=== PATIENT | male | born 1955 | race Caucasian/White ===

== ENCOUNTER 2021-03-16 17:22 | Emergency (ER) | payer MEDICARE ==
[2021-03-16 17:50] LABS: BASOPHIL 0.3 % (0-2); EOSINOPHIL 0.8 % (0-7); HCT 37.9 % (42.0-52.0); HGB 13.3 g/dl (13.2-18.0); LYMPHOCYTE 22.9 % (15-48); MCH 30.2 pg (25.0-31.0); MCHC 35.1 g/dL (32.0-36.0); MCV 85.9 fL (78.0-100.0); MONOCYTE 7.2 % (0-12); MPV 9.6 fL (6.0-9.5); NEUTROPHIL 68.5 % (41-80); NRBC 0; PLT 192 K/uL (150-400); RBC 4.41 M/uL (4.70-6.00); RDW 12.4 % (11.5-14.0)
[2021-03-16 17:56] LABS: INR 1.14 (0.9-1.2); PROTHROMBIN TIME 13.9 SECONDS (11.4-13.6); PTT 25.4 SECONDS (22.2-34.7)
[2021-03-16 17:57] LABS: D-DIMER 0.82 ug/mLFEU (0.00-0.41)
[2021-03-16 18:03] LABS: ALBUMIN 3.8 g/dL (3.4-5.0); BILIRUBIN - TOTAL 0.5 mg/dL (0.2-1.0); BUN/CREAT RATIO (CALC) 24.6 RATIO; CREATININE 0.69 mg/dL (0.67-1.17); GLOBULIN (CALCULATION) 3.2 g/dL; POTASSIUM 3.2 mmol/L (3.5-5.1)
[2021-03-16 18:11] LABS: CKMB 1.1 ng/mL (0.0-3.6)
[2021-03-16 22:02] LABS: BILIRUBIN NEGATIVE (NEGATIVE); BLOOD NEGATIVE Ery/uL (NEGATIVE); CLARITY CLEAR (CLEAR); COLOR YELLOW (YELLOW); GLUCOSE (U) NORMAL (NORMAL); LEUKOCYTES NEGATIVE Leu/uL (NEGATIVE); NITRITE NEGATIVE (NEGATIVE); PROTEIN TRACE (LOW) mg/dL (NEGATIVE); SPECIFIC GRAVITY >=1.030 (1.001-1.030); UROBILINOGEN 0.2 mg/dL (0.2-1.0); pH 5.5 (5.0-9.0)
== END 2021-03-17 00:11 | disposition other institution (70) ==
LOC: FER 17:22
PROVIDERS: Emergency Medicine
DX: I21.4 Non-ST elevation (NSTEMI) myocardial infarction (principal); Z20.822 Contact with and (suspected) exposure to COVID-19; Z79.82 Long term (current) use of aspirin; Z79.899 Other long term (current) drug therapy
CPT/HCPCS: 36415; 71045; 80053; 81003; 82553; 84484; 85025; 85379; 85610; 85730; 93005; J1644; J2270; J2405; U0002

== ENCOUNTER 2021-05-07 18:18 | Emergency (ER) | payer MEDICARE ==
[2021-05-07 21:52] LABS: BASOPHIL 0.3 % (0-2); EOSINOPHIL 0.8 % (0-7); HCT 40.9 % (42.0-52.0); HGB 14.7 g/dl (13.2-18.0); LYMPHOCYTE 27.8 % (15-48); MCH 30.1 pg (25.0-31.0); MCHC 35.9 g/dL (32.0-36.0); MCV 83.6 fL (78.0-100.0); MONOCYTE 7.4 % (0-12); MPV 9.9 fL (6.0-9.5); NEUTROPHIL 63.4 % (41-80); NRBC 0; PLT 248 K/uL (150-400); RBC 4.89 M/uL (4.70-6.00); RDW 12.5 % (11.5-14.0); WBC 9.5 K/uL (4.0-10.5)
[2021-05-07 22:17] LABS: ALBUMIN 3.8 g/dL (3.4-5.0); BILIRUBIN - TOTAL 0.7 mg/dL (0.2-1.0); BUN/CREAT RATIO (CALC) 26.7 RATIO; CREATININE 1.05 mg/dL (0.67-1.17); GLOBULIN (CALCULATION) 3.8 g/dL; POTASSIUM 2.9 mmol/L (3.5-5.1); TOTAL PROTEIN 7.6 g/dL (6.4-8.2)
[2021-05-07 22:21] LABS: BILIRUBIN NEGATIVE (NEGATIVE); BLOOD NEGATIVE Ery/uL (NEGATIVE); CLARITY CLEAR (CLEAR); COLOR YELLOW (YELLOW); GLUCOSE (U) NORMAL (NORMAL); LEUKOCYTES NEGATIVE Leu/uL (NEGATIVE); NITRITE NEGATIVE (NEGATIVE); PROTEIN NEGATIVE (NEGATIVE); pH 5.5 (5.0-9.0)
[2021-05-07 22:26] LABS: PRO-BNP 74 pg/mL (<125)
[2021-05-07 22:27] LABS: LACTIC ACID 3.2 mmol/L (0.4-1.9)
[2021-05-08] MEDS ORDERED: K-DUR20 MEQ PO (01:44)
== END 2021-05-08 02:01 | disposition home or self-care (01) ==
LOC: FER 18:18
PROVIDERS: Emergency Medicine
DX: E87.6 Hypokalemia (principal); I25.10 Atherosclerotic heart disease of native coronary artery without angina pectoris; E11.9 Type 2 diabetes mellitus without complications; Z79.899 Other long term (current) drug therapy; Z79.84 Long term (current) use of oral hypoglycemic drugs
CPT/HCPCS: 36415; 71045; 80053; 81003; 82550; 83605; 83880; 84484; 85025; 93005; J2405; J3480

== ENCOUNTER 2021-06-27 03:12 | Emergency (ER) | payer MEDICARE ==
[~2021-06-27 03:12] MED LIST: K-DUR20 MEQ PO
[2021-06-27 03:59] LABS: BASOPHIL 0.2 % (0-2); EOSINOPHIL 0.7 % (0-7); HCT 37.6 % (42.0-52.0); HGB 12.7 g/dl (13.2-18.0); LYMPHOCYTE 20.1 % (15-48); MCH 29.2 pg (25.0-31.0); MCHC 33.8 g/dL (32.0-36.0); MCV 86.4 fL (78.0-100.0); MONOCYTE 5.3 % (0-12); MPV 9.7 fL (6.0-9.5); NEUTROPHIL 73.2 % (41-80); NRBC 0; PLT 212 K/uL (150-400); RBC 4.35 M/uL (4.70-6.00); RDW 12.3 % (11.5-14.0); WBC 8.4 K/uL (4.0-10.5)
[2021-06-27 04:04] LABS: INR 1.12 (0.9-1.2); PROTHROMBIN TIME 13.8 SECONDS (11.8-13.4); PTT 25.2 SECONDS (24.4-34.7)
[2021-06-27 04:27] LABS: ALBUMIN 3.6 g/dL (3.4-5.0); BILIRUBIN - TOTAL 0.4 mg/dL (0.2-1.0); BUN/CREAT RATIO (CALC) 23.1 RATIO; CREATININE 0.65 mg/dL (0.67-1.17); GLOBULIN (CALCULATION) 3.3 g/dL; POTASSIUM 3.9 mmol/L (3.5-5.1); TOTAL PROTEIN 6.9 g/dL (6.4-8.2)
== END 2021-06-27 05:26 | disposition other institution (70) ==
LOC: FER 03:12
PROVIDERS: Emergency Medicine Emergency Medical Services
DX: I21.3 ST elevation (STEMI) myocardial infarction of unspecified site (principal); I44.7 Left bundle-branch block, unspecified; F17.200 Nicotine dependence, unspecified, uncomplicated; I10 Essential (primary) hypertension; I25.2 Old myocardial infarction; Z95.5 Presence of coronary angioplasty implant and graft; Z91.09 Other allergy status, other than to drugs and biological substances
CPT/HCPCS: 36415; 71045; 80053; 84484; 85025; 85610; 85730; 93005; J1644; J2270; J2405; J7040

== ENCOUNTER → 2021-09-13 | Day surgery (SDC) | payer MEDICARE ==
[~2021-09-13] VITALS: Ht 170.2 cm; Wt 66.7 kg
[~2021-09-13] MED LIST changes: +ASPIRIN EC81 M1 PO; +ATORVASTATIN CA80 MG PO; +BRILINTA90 MG PO; +BUPROPION XL150 MG PO; +CARVEDILOL3.125 MG PO; +FENTANYL1 EAC1 TOP; +FLUOXETINE HCL20 MG PO; +FLUOXETINE HCL40 MG PO; +GAS RELIEF80 MG PO; +LISINOPRIL10 MG PO; +METFORMIN HCL500 M3 PO; +NITROGLYCERIN0.4 MG SL; +OMEPRAZOLE 20MG20 MG PO; +ONDANSETRON ODT8 MG PO; +SUCRALFATE1 GM PO
== END | disposition home or self-care (01) ==
LOC: FAS 08-30 10:45
DX: K29.50 Unspecified chronic gastritis without bleeding (principal); B96.81 Helicobacter pylori [H. pylori] as the cause of diseases classified elsewhere; K20.90 Esophagitis, unspecified without bleeding; K31.A0 Gastric intestinal metaplasia, unspecified; K31.1 Adult hypertrophic pyloric stenosis; R93.5 Abnormal findings on diagnostic imaging of other abdominal regions, including retroperitoneum; R68.81 Early satiety; R63.4 Abnormal weight loss; R10.9 Unspecified abdominal pain; R13.10 Dysphagia, unspecified; I25.10 Atherosclerotic heart disease of native coronary artery without angina pectoris; I11.0 Hypertensive heart disease with heart failure; I50.9 Heart failure, unspecified; E11.9 Type 2 diabetes mellitus without complications; I25.2 Old myocardial infarction; K21.9 Gastro-esophageal reflux disease without esophagitis; E78.5 Hyperlipidemia, unspecified; C61 Malignant neoplasm of prostate; F41.9 Anxiety disorder, unspecified; F32.A Depression, unspecified; F17.220 Nicotine dependence, chewing tobacco, uncomplicated; Z68.23 Body mass index [BMI] 23.0-23.9, adult; Z79.82 Long term (current) use of aspirin; Z79.899 Other long term (current) drug therapy; Z79.84 Long term (current) use of oral hypoglycemic drugs
CPT/HCPCS: J2250; J2704; J3010; J7120

== ENCOUNTER 2021-10-14 17:58 | Day surgery (SDCO) | payer MEDICARE ==
[~2021-10-14] VITALS: Ht 170.2 cm; Wt 66.7 kg
[2021-10-14 18:15] LABS: BASOPHIL 0.3 % (0-2); EOSINOPHIL 0.7 % (0-7); HCT 44.1 % (42.0-52.0); HGB 14.7 g/dl (13.2-18.0); LYMPHOCYTE 19.4 % (15-48); MCH 29.5 pg (25.0-31.0); MCHC 33.3 g/dL (32.0-36.0); MCV 88.6 fL (78.0-100.0); MPV 9.7 fL (6.0-9.5); NEUTROPHIL 72.3 % (41-80); NRBC 0; PLT 246 K/uL (150-400); RBC 4.98 M/uL (4.70-6.00); RDW 12.4 % (11.5-14.0); WBC 7.4 K/uL (4.0-10.5)
[2021-10-14 18:25] LABS: INR 1.08 (0.9-1.2); PROTHROMBIN TIME 13.4 SECONDS (11.8-13.4); PTT 26.3 SECONDS (24.4-34.7)
[2021-10-14 18:33] LABS: ALBUMIN 3.8 g/dL (3.4-5.0); BILIRUBIN - TOTAL 0.4 mg/dL (0.2-1.0); BUN/CREAT RATIO (CALC) 23.5 RATIO; CREATININE 0.68 mg/dL (0.67-1.17); GLOBULIN (CALCULATION) 3.7 g/dL; POTASSIUM 4.9 mmol/L (3.5-5.1); TOTAL PROTEIN 7.5 g/dL (6.4-8.2)
[2021-10-14 18:38] LABS: LACTIC ACID 2.4 mmol/L (0.4-1.9)
[2021-10-14 18:39] LABS: PRO-BNP 879 pg/mL (<125)
[2021-10-14 20:27] LABS: BILIRUBIN NEGATIVE (NEGATIVE); BLOOD NEGATIVE Ery/uL (NEGATIVE); CLARITY CLEAR (CLEAR); COLOR YELLOW (YELLOW); GLUCOSE (U) NORMAL (NORMAL); LEUKOCYTES NEGATIVE Leu/uL (NEGATIVE); NITRITE NEGATIVE (NEGATIVE); PROTEIN TRACE (LOW) mg/dL (NEGATIVE); SPECIFIC GRAVITY >=1.030 (1.001-1.030); UROBILINOGEN 0.2 mg/dL (0.2-1.0); pH 5.5 (5.0-9.0)
[2021-10-15 06:40] LABS: BASOPHIL 0.1 % (0-2); EOSINOPHIL 3.1 % (0-7); HCT 36.5 % (42.0-52.0); HGB 12.1 g/dl (13.2-18.0); LYMPHOCYTE 42.6 % (15-48); MCH 29.2 pg (25.0-31.0); MCHC 33.2 g/dL (32.0-36.0); MONOCYTE 7.9 % (0-12); MPV 9.4 fL (6.0-9.5); NRBC 0; PLT 193 K/uL (150-400); RBC 4.15 M/uL (4.70-6.00); RDW 12.8 % (11.5-14.0); WBC 6.7 K/uL (4.0-10.5)
[2021-10-15 07:00] LABS: ALBUMIN 3.1 g/dL (3.4-5.0); ALKALINE PHOSHATASE 126 U/L (46-116); ALT 29 U/L (16-63); AST <5 U/L (15-37); BILIRUBIN - TOTAL 0.4 mg/dL (0.2-1.0); BUN 12 mg/dL (7-18); BUN/CREAT RATIO (CALC) 17.9 RATIO; CHLORIDE 105 mmol/L (98-107); CHOLESTEROL 99 mg/dL (<200); CO2 (BICARBONATE) 28 mmol/L (21-32); CREATININE 0.67 mg/dL (0.67-1.17); GLOBULIN (CALCULATION) 3.1 g/dL; GLUCOSE 107 mg/dL (74-106); HDL 25 mg/dL (40-60); LDL - DIRECT 72 mg/dL (<100); MAGNESIUM 2.1 mg/dL (1.8-2.4); POTASSIUM 4.2 mmol/L (3.5-5.1); TOTAL PROTEIN 6.2 g/dL (6.4-8.2); TRIGLYCERIDES 88 mg/dL (<150)
[2021-10-15 07:08] LABS: CKMB 0.8 ng/mL (0.0-3.6)
[2021-10-15] MEDS ORDERED: ISOSORBIDE MONO30 MG PO (10:36)
--- NOTE | 2021-10-15 11:53 | NUR ---
10/15/21 Patient is discharging home. No dc planning needs were identified.
== END 2021-10-15 13:20 | disposition home or self-care (01) ==
LOC: FER 17:58 → FMS 22:14
PROVIDERS: Emergency Medicine; Emergency Medicine Emergency Medical Services; Nurse Practitioner; ADMIT Internal Medicine
DX: R07.89 Other chest pain (principal); I25.10 Atherosclerotic heart disease of native coronary artery without angina pectoris; D64.9 Anemia, unspecified; I50.20 Unspecified systolic (congestive) heart failure; C61 Malignant neoplasm of prostate; B96.81 Helicobacter pylori [H. pylori] as the cause of diseases classified elsewhere; E11.9 Type 2 diabetes mellitus without complications; I25.5 Ischemic cardiomyopathy; I25.2 Old myocardial infarction; Z79.82 Long term (current) use of aspirin; Z95.5 Presence of coronary angioplasty implant and graft; Z20.822 Contact with and (suspected) exposure to COVID-19; Z87.891 Personal history of nicotine dependence
CPT/HCPCS: 36415; 71045; 71275; 80053; 80061; 81003; 82553; 83036; 83605; 83690; 83735; 83880; 84484; 85025; 85379; 85610; 85730; 87040; 93005; 94010; G0378; J1650; J2270; J2405; J2543; J7030; U0002

== ENCOUNTER 2021-11-16 23:52 | Emergency (ER) | payer MEDICARE ==
[~2021-11-16 23:52] MED LIST changes: +DURAGESIC 50MC50 MCG TOP; +ISOSORBIDE MONO30 MG PO; +K-TAB ER20 MEQ PO; +LASIX20 MG PO
[2021-11-17 00:21] LABS: BASOPHIL 0.2 % (0-2); EOSINOPHIL 2.7 % (0-7); HCT 41.1 % (42.0-52.0); HGB 13.8 g/dl (13.2-18.0); LYMPHOCYTE 23.7 % (15-48); MCH 29.7 pg (25.0-31.0); MCHC 33.6 g/dL (32.0-36.0); MCV 88.6 fL (78.0-100.0); MONOCYTE 8.2 % (0-12); MPV 9.9 fL (6.0-9.5); NRBC 0; PLT 261 K/uL (150-400); RBC 4.64 M/uL (4.70-6.00); RDW 12.5 % (11.5-14.0)
[2021-11-17 00:36] LABS: BUN/CREAT RATIO (CALC) 28.6 RATIO; CREATININE 0.63 mg/dL (0.67-1.17); POTASSIUM 4.7 mmol/L (3.5-5.1)
[2021-11-17 01:01] LABS: CORONAVIRUS 2019 SARS-COV-2 NEGATIVE (NEGATIVE); INFLUENZA A NAA NEGATIVE (NEGATIVE)
== END 2021-11-17 02:38 | disposition home or self-care (01) ==
LOC: FER 23:52
PROVIDERS: Internal Medicine
DX: R07.89 Other chest pain (principal); R79.89 Other specified abnormal findings of blood chemistry; I25.2 Old myocardial infarction; E10.9 Type 1 diabetes mellitus without complications; Z20.822 Contact with and (suspected) exposure to COVID-19
CPT/HCPCS: 36415; 71045; 80048; 83880; 84145; 84484; 85025; 93005; U0002